=== PATIENT | female | born 1940 | race Caucasian/White ===

== ENCOUNTER 2021-12-09 10:02 | Day surgery (SDC) | payer MEDICARE, OTHER ==
[~2021-12-09] VITALS: Ht 160 cm; Wt 70.0 kg
[2021-12-09 10:12] VITALS: BP 153/63
[2021-12-09] MEDS ORDERED: MIDAZolam 1 MG/ML 5ML VIAL ONE (10:28)
[2021-12-09] MEDS ORDERED: fentaNYL/PF 50MCG/1 ML 2ML syringe ONE (10:28)
[2021-12-09] MEDS ORDERED: CALCIUM (10:43)
[2021-12-09] MEDS ORDERED: SYNTHROID PO (10:43)
[2021-12-09] MEDS ORDERED: VITAMIN D3 PO (10:43)
[2021-12-09 11:55] VITALS: BP 115/54
[2021-12-09 12:05] VITALS: BP 128/54
[2021-12-09 12:15] VITALS: BP 112/59
[2021-12-09 12:25] VITALS: BP 137/58
== END 2021-12-09 12:30 | disposition home or self-care (01) ==
LOC: GI LAB 10:02
PROVIDERS: ATTEND Internal Medicine Gastroenterology
DX: Z12.11 Encounter for screening for malignant neoplasm of colon (principal); K63.5 Polyp of colon; K57.30 Diverticulosis of large intestine without perforation or abscess without bleeding; K64.8 Other hemorrhoids; Z86.010 Personal history of colon polyps; Z72.89 Other problems related to lifestyle; Z79.899 Other long term (current) drug therapy
CPT/HCPCS: 45385; 88305; C1773; G0500; J2250; J3010; J7040; Z7512; 99152; A4620